=== PATIENT | male | born 1985 | race Caucasian/White ===

== ENCOUNTER 2017-09-26 20:52 | Emergency (ER) | payer OTHER ==
[~2017-09-26 20:52] MED LIST: OXYC-302 PO
[2017-09-26] MEDS ORDERED: IBUPROFEN 100 MG/5 ML UDC ONE (22:04)
== END 2017-09-26 21:06 ==
LOC: ED 21:00
DX: Z02.9 Encounter for administrative examinations, unspecified (principal)